=== PATIENT | female | born 1990 | race Two or more races ===

== ENCOUNTER 2024-05-10 10:10 | Emergency (ER) | payer OTHER | END 2024-05-10 11:30 | disposition home or self-care (01) | LOC: MW.ED 10:10 | DX: S13.4XXA Sprain of ligaments of cervical spine, initial encounter (principal); I10 Essential (primary) hypertension; Z75.8 Other problems related to medical facilities and other health care; V49.40XA Driver injured in collision with unspecified motor vehicles in traffic accident, initial encounter; Y92.410 Unspecified street and highway as the place of occurrence of the external cause | CPT/HCPCS: 70450; 70450-26; 71045; 71045-26; 72125; 72125-26; 72131; 72131-26; 99285 ==